=== PATIENT | male | born 1965 | race African-American/Black ===

== ENCOUNTER → 2018-12-28 | Outpatient (CLI) | payer OTHER ==
[~2018-12-28] MED LIST: GADOBENATE DIMEGLUMINE 1 ML IV ONE
[2018-12-28 08:32] LABS: BLOOD UREA NITROGEN 9 mg/dL (7-26); BUN/CREATININE RATIO 8 (6-25); CREATININE, SERUM 1.18 mg/dL (0.72-1.25); EST GLOMERULAR FILTRATION RATE > 60 ML/MIN (60-)
--- NOTE | 2018-12-28 11:43 | Diagnostic Imaging Report ---
History: Multiple sclerosis, follow-up Comparison studies: MRI of the brain, cervical, thoracic spine 11/25/2016 Technique: Precontrast brain: 3-D T2 flair with multiplanar reconstruction, axial T1 flair, and DWI Postcontrast brain: 3-D T1 with multiplanar reconstruction, axial T2. Post contrast cervical and thoracic spines: Sagittal T1, T2 and IR, axial T1 and T2. Intravenous contrast: 20 cc of MultiHance Findings: Brain MRI: T2 lesion load: Number:Approximately 15. Size:From 0.1-1.0 cm, the largest located at the left parietal deep white matter. Location: 1. Deep and periventricular white matter 2. No significant infratentorial lesions are seen T1 hypointense foci: None Enhancing lesions: None Corpus callosum volume: Adequate for age Brain volume: Adequate for age Additional abnormalities: None. Cervical spine: Spinal Cord size: Normal in size and morphology from C7-L1 T2 lesion load:Unchanged dorsal midline lesions from C4 mid level through C5 mid level. No new lesion T1 hypointense foci:None Enhancement: None Stable degenerative changes with moderate degenerative stenosis at C4-5 and C5-6. Moderate degenerative foraminal narrowing at C4-5 and C5-6 bilaterally. Severe left degenerative foraminal narrowing at C6-7. Thoracic spine: Spinal Cord size: Normal in size and morphology from C7-L1 T2 lesion load:None T1 hypointense foci:None Enhancement: None Additional comments: Alignment: Normal cervical lordosis. Normal thoracic kyphosis . Cervicomedullary junction: Patent foramen magnum. No Chiari one malformation. Soft tissues tissues: No signal abnormalities. Vertebral bodies: No fractures, infection or neoplasm. Incidental findings: None IMPRESSION: Brain: 1. Stable supratentorial white matter lesions, could be seen in demyelination 2. No enhancing or new lesions are seen Cervical spine: 1. Stable nonenhancing lesion at the dorsal cervical cord from C4 mid level through C5 mid level. 2. No enhancing or new lesions are seen Thoracic spine: 1. No cord lesions are seen. 2. Grossly patent canal and foramina. Signed by: DR Prem Kenny M.D. on 12/28/2018 11:40 AM
== END ==
LOC: MRI 07:25
PROVIDERS: ATTEND Psychiatry & Neurology Neurology
DX: G35 Multiple sclerosis (principal)
CPT/HCPCS: 36415; 70553; 72156; 72157; 82565; 84520; A9577

== ENCOUNTER → 2021-01-30 | Outpatient (CLI) | payer OTHER ==
[2021-01-30 08:59] LABS: CREATININE, SERUM 1.09 mg/dL (0.72-1.25)
== END ==
LOC: MRI 07:41
PROVIDERS: ATTEND Psychiatry & Neurology Neurology
DX: G35 Multiple sclerosis (principal)
CPT/HCPCS: 36415; 70553; 72156; 72157; 82565; 84520; A9577

== ENCOUNTER → 2022-10-13 | Outpatient (CLI) | payer OTHER ==
[2022-10-13 09:52] LABS: CREATININE, SERUM 0.97 mg/dL (0.72-1.25)
== END ==
LOC: MRI 08:50
PROVIDERS: ATTEND Psychiatry & Neurology Neurology
DX: G35 Multiple sclerosis (principal)
CPT/HCPCS: 36415; 70553; 72156; 72157; 82565; 84520; A9577

== ENCOUNTER → 2024-08-18 | Outpatient (REF) | payer BC | LOC: MRI 13:06 | PROVIDERS: ATTEND Psychiatry & Neurology Neurology | DX: G35 Multiple sclerosis (principal); M50.30 Other cervical disc degeneration, unspecified cervical region | CPT/HCPCS: 70553; 72156; 72157 ==